=== PATIENT | female | born 1930 | race Caucasian/White ===

== ENCOUNTER 2018-01-08 03:12 | Inpatient (IN) | payer OTHER ==
[~2018-01-08] VITALS: Ht 149.9 cm; Wt 43.5 kg
[2018-01-08 03:35] LABS: BASOPHIL % 0.5 % (0-2); PLATELET COUNT 193 x10^3mcL (130-400)
[2018-01-08 03:39] LABS: RED CELL DISTRIBUTION WIDTH 14.8 % (11.5-14.5)
[2018-01-08 03:46] LABS: CARBON DIOXIDE 28.9 mmol/L (21-32); CHLORIDE SERUM 102 mmol/L (98-107); CREATININE SERUM 1.4 mg/dL (0.6-1.0); GLUCOSE SERUM 126 mg/dL (74-106); SODIUM SERUM 139 mmol/L (136-145)
[2018-01-08 03:51] LABS: ALBUMIN 3.5 g/dL (3.4-5.0); ALKALINE PHOSPHATASE 135 U/L (46-116); ALT/SGPT 25 U/L (14-59); AST/SGOT 19 U/L (15-37); BILIRUBIN TOTAL 0.6 mg/dL (0.20-1.00); MAGNESIUM 2.4 mg/dL (1.8-2.4); TOTAL PROTEIN, SERUM 7.1 g/dL (6.4-8.2)
[2018-01-08] MEDS ORDERED: MEMANTINE HCL10 MG PO (04:43)
[2018-01-08] MEDS ORDERED: APAP500 MG PO (04:43)
[2018-01-08 06:26] LABS: CHOLESTEROL/HDL RATIO 3.8; PHOSPHOROUS 3.8 mg/dL (2.5-4.9)
[2018-01-08 06:36] LABS: FREE T4 1.14 ng/dL (0.76-1.46); FREE THYROXINE INDEX 2.4 ug/dL (1.4-4.5); T4(THYROXINE) 7.1 ug/dL (4.7-13.3)
[2018-01-08 06:44] VITALS: BP 178/65
[2018-01-08 06:51] LABS: microscopic required? YES; urine erythrocyte NEGATIVE (NEGATIVE)
[2018-01-08 07:02] LABS: AMPHETAMINE QUAL UR NONE DETECTED (NEG <=1000)
[2018-01-08 07:05] LABS: T3 TOTAL 0.67 ng/mL
[2018-01-08] MEDS ORDERED: HYDROCHLOROTH12.5 M2 (07:51)
[2018-01-08 09:36] VITALS: BP 158/50
[2018-01-08 11:35] VITALS: BP 178/65
[2018-01-08 12:47] VITALS: BP 146/65
[2018-01-08] MEDS ORDERED: ALENDRONATE SOD70 M2 PO (17:27)
[2018-01-08 20:43] VITALS: BP 155/61
[2018-01-09] VITALS (7 sets, daily range): BP systolic 101–166; BP diastolic 45–70
[2018-01-09 06:25] LABS: BASOPHIL % 0.5 % (0-2); PLATELET COUNT 177 x10^3mcL (130-400)
[2018-01-09 06:27] LABS: RED CELL DISTRIBUTION WIDTH 14.8 % (11.5-14.5)
[2018-01-09 06:49] LABS: CALCIUM 8.9 mg/dL (8.5-10.1); CARBON DIOXIDE 26.5 mmol/L (21-32); CHLORIDE SERUM 106 mmol/L (98-107); GLUCOSE SERUM 94 mg/dL (74-106); MAGNESIUM 1.7 mg/dL (1.8-2.4); PHOSPHOROUS 2.7 mg/dL (2.5-4.9); POTASSIUM SERUM 4.4 mmol/L (3.5-5.1); SODIUM SERUM 140 mmol/L (136-145)
[2018-01-10 06:07] VITALS: BP 115/58
[2018-01-10 06:38] LABS: CALCIUM 8.8 mg/dL (8.5-10.1); CARBON DIOXIDE 25.3 mmol/L (21-32); CHLORIDE SERUM 106 mmol/L (98-107); CREATININE SERUM 0.9 mg/dL (0.6-1.0); GLUCOSE SERUM 91 mg/dL (74-106); MAGNESIUM 2.1 mg/dL (1.8-2.4); PHOSPHOROUS 3.1 mg/dL (2.5-4.9); POTASSIUM SERUM 4.1 mmol/L (3.5-5.1); SODIUM SERUM 137 mmol/L (136-145)
[2018-01-10 06:46] LABS: BASOPHIL % 0.8 % (0-2); PLATELET COUNT 189 x10^3mcL (130-400); RED CELL DISTRIBUTION WIDTH 14.4 % (11.5-14.5)
[2018-01-10 13:16] VITALS: BP 127/62
[2018-01-10 16:25] VITALS: BP 129/58
[2018-01-10 20:08] VITALS: BP 129/53
[2018-01-10 21:19] VITALS: BP 115/57
[2018-01-11 05:56] VITALS: BP 119/49
[2018-01-11 07:42] LABS: BASOPHIL % 0.7 % (0-2); PLATELET COUNT 186 x10^3mcL (130-400)
[2018-01-11 07:49] LABS: RED CELL DISTRIBUTION WIDTH 14.6 % (11.5-14.5)
[2018-01-11 08:25] LABS: CALCIUM 8.9 mg/dL (8.5-10.1); CARBON DIOXIDE 25.5 mmol/L (21-32); CHLORIDE SERUM 106 mmol/L (98-107); CREATININE SERUM 0.8 mg/dL (0.6-1.0); GLUCOSE SERUM 90 mg/dL (74-106); MAGNESIUM 1.9 mg/dL (1.8-2.4); PHOSPHOROUS 4.3 mg/dL (2.5-4.9); SODIUM SERUM 139 mmol/L (136-145)
[2018-01-11 08:40] VITALS: BP 124/58
[2018-01-11 12:08] VITALS: BP 111/56
[2018-01-11 17:14] VITALS: BP 122/53
[2018-01-11 20:17] VITALS: BP 145/58
[2018-01-12] VITALS (13 sets, daily range): BP systolic 116–174; BP diastolic 50–83; Ht 149.9 cm; Wt 43.5 kg
[2018-01-12 07:33] LABS: BASOPHIL % 0.6 % (0-2); PLATELET COUNT 195 x10^3mcL (130-400)
[2018-01-12 07:42] LABS: RED CELL DISTRIBUTION WIDTH 15.2 % (11.5-14.5)
[2018-01-12 08:53] LABS: CALCIUM 8.8 mg/dL (8.5-10.1); CARBON DIOXIDE 26.7 mmol/L (21-32); CHLORIDE SERUM 106 mmol/L (98-107); CREATININE SERUM 0.9 mg/dL (0.6-1.0); GLUCOSE SERUM 87 mg/dL (74-106); PHOSPHOROUS 3.7 mg/dL (2.5-4.9); POTASSIUM SERUM 4.1 mmol/L (3.5-5.1); SODIUM SERUM 139 mmol/L (136-145)
[2018-01-13 05:08] VITALS: BP 129/88
[2018-01-13 06:22] LABS: BASOPHIL % 0.5 % (0-2); PLATELET COUNT 201 x10^3mcL (130-400)
[2018-01-13 06:31] LABS: CALCIUM 8.4 mg/dL (8.5-10.1); CARBON DIOXIDE 28.2 mmol/L (21-32); CHLORIDE SERUM 106 mmol/L (98-107); CREATININE SERUM 0.8 mg/dL (0.6-1.0); GLUCOSE SERUM 93 mg/dL (74-106); MAGNESIUM 1.9 mg/dL (1.8-2.4); POTASSIUM SERUM 4.1 mmol/L (3.5-5.1); SODIUM SERUM 140 mmol/L (136-145)
[2018-01-13 07:11] LABS: RED CELL DISTRIBUTION WIDTH 14.9 % (11.5-14.5)
[2018-01-13 10:34] VITALS: BP 130/55
[2018-01-13 17:10] VITALS: BP 151/67
[2018-01-13 21:23] VITALS: BP 131/67
[2018-01-14 05:27] VITALS: BP 102/55
[2018-01-14 06:23] LABS: BASOPHIL % 0.6 % (0-2); PLATELET COUNT 177 x10^3mcL (130-400)
[2018-01-14 06:58] LABS: CALCIUM 8.2 mg/dL (8.5-10.1); CARBON DIOXIDE 25.8 mmol/L (21-32); CHLORIDE SERUM 105 mmol/L (98-107); CREATININE SERUM 0.9 mg/dL (0.6-1.0); GLUCOSE SERUM 108 mg/dL (74-106); MAGNESIUM 1.8 mg/dL (1.8-2.4); PHOSPHOROUS 2.9 mg/dL (2.5-4.9); POTASSIUM SERUM 3.7 mmol/L (3.5-5.1); SODIUM SERUM 138 mmol/L (136-145)
[2018-01-14 07:06] LABS: RED CELL DISTRIBUTION WIDTH 14.9 % (11.5-14.5)
[2018-01-14 09:09] VITALS: BP 125/61
[2018-01-14 11:56] VITALS: BP 125/61
[2018-01-14] MEDS ORDERED: LIPI10 PO (12:12)
[2018-01-14] MEDS ORDERED: ECO81 PO (12:12)
[2018-01-14] MEDS ORDERED: LAC PO (12:13)
== END 2018-01-14 15:40 | disposition home health service (06) | DRG 242 ==
LOC: ED 03:12 → DU 05:36 → MU 01-14 10:52
PROVIDERS: Emergency Medicine; Family Medicine; Internal Medicine Cardiovascular Disease
PROC: 02H63JZ Insertion of Pacemaker Lead into Right Atrium, Percutaneous Approach (ICD-10-PCS; 2018-01-12)
PROC: 02HK3JZ Insertion of Pacemaker Lead into Right Ventricle, Percutaneous Approach (ICD-10-PCS; 2018-01-12)
PROC: 0JH606Z Insertion of Pacemaker, Dual Chamber into Chest Subcutaneous Tissue and Fascia, Open Approach (ICD-10-PCS; principal; 2018-01-12 09:30)
PROC: 02WA3MZ Revision of Cardiac Lead in Heart, Percutaneous Approach (ICD-10-PCS; 2018-01-13)
DX: I49.5 Sick sinus syndrome (principal); N17.0 Acute kidney failure with tubular necrosis; N39.0 Urinary tract infection, site not specified; Z68.1 Body mass index [BMI] 19.9 or less, adult; G90.8 Other disorders of autonomic nervous system; W01.0XXA Fall on same level from slipping, tripping and stumbling without subsequent striking against object, initial encounter; I10 Essential (primary) hypertension; E86.0 Dehydration; H40.9 Unspecified glaucoma; M81.0 Age-related osteoporosis without current pathological fracture; E87.6 Hypokalemia; E83.42 Hypomagnesemia; F03.90 Unspecified dementia, unspecified severity, without behavioral disturbance, psychotic disturbance, mood disturbance, and anxiety; D64.9 Anemia, unspecified; Y93.89 Activity, other specified; Y92.89 Other specified places as the place of occurrence of the external cause; Y99.8 Other external cause status; Z79.899 Other long term (current) drug therapy
CPT/HCPCS: 33208; 83880; 84439; 97110-GP; C1785; J0690; J0696; J2001; J2250; J3010; J3370; J3490; J7030; J7040; Q0092; Q0163; Q9967

== ENCOUNTER 2018-12-26 20:58 | Inpatient (IN) | payer OTHER ==
[~2018-12-26] VITALS: Ht 149.9 cm; Wt 47.4 kg
[~2018-12-26 20:58] MED LIST: ALENDRONATE SOD70 M2 PO; APAP500 MG PO; ECO81 PO; HYDROCHLOROTH12.5 M2; LAC PO; LIPI10 PO; MEMANTINE HCL10 MG PO
[2018-12-26 21:40] LABS: BASOPHIL % 0.3 % (0-2); PLATELET COUNT 166 x10^3mcL (130-400); RED CELL DISTRIBUTION WIDTH 13.3 % (11.5-14.5)
[2018-12-26 21:58] LABS: CALCIUM 8.6 mg/dL (8.5-10.1); CHLORIDE SERUM 106 mmol/L (98-107); GLUCOSE SERUM 153 mg/dL (74-106); POTASSIUM SERUM 4.3 mmol/L (3.5-5.1); SODIUM SERUM 139 mmol/L (136-145)
[2018-12-26 22:03] LABS: ALBUMIN 3.3 g/dL (3.4-5.0); ALKALINE PHOSPHATASE 72 U/L (46-116); ALT/SGPT 30 U/L (14-59); AST/SGOT 25 U/L (15-37); BILIRUBIN TOTAL 0.3 mg/dL (0.20-1.00); TOTAL PROTEIN, SERUM 6.8 g/dL (6.4-8.2)
[2018-12-26] MEDS ORDERED: FERROUS GLUCON324 M2 PO (23:26)
[2018-12-26] MEDS ORDERED: HYDROCHLOROTH12.5 M2 PO (23:29)
[2018-12-27 00:42] VITALS: BP 109/46
[2018-12-27 01:28] LABS: MAGNESIUM 2.3 mg/dL (1.8-2.4); PHOSPHOROUS 3.4 mg/dL (2.5-4.9)
[2018-12-27 01:29] LABS: CHOLESTEROL/HDL RATIO 2.2
[2018-12-27 05:32] VITALS: BP 141/65
[2018-12-27 05:49] LABS: UA SPECIFIC GRAVITY >=1.030 (1.005-1.035); microscopic required? YES; urine erythrocyte 2+ (NEGATIVE)
[2018-12-27 06:04] LABS: BASOPHIL % 1.4 % (0-2); PLATELET COUNT 141 x10^3mcL (130-400); RED CELL DISTRIBUTION WIDTH 13.6 % (11.5-14.5)
[2018-12-27 06:28] LABS: CALCIUM 8.7 mg/dL (8.5-10.1); CARBON DIOXIDE 25.6 mmol/L (21-32); CHLORIDE SERUM 109 mmol/L (98-107); GLUCOSE SERUM 98 mg/dL (74-106); MAGNESIUM 2.4 mg/dL (1.8-2.4); PHOSPHOROUS 3.7 mg/dL (2.5-4.9); POTASSIUM SERUM 4.9 mmol/L (3.5-5.1); SODIUM SERUM 142 mmol/L (136-145)
[2018-12-27 07:06] VITALS: BP 117/54
[2018-12-27 12:20] VITALS: BP 104/48
[2018-12-27 16:08] VITALS: BP 109/52
[2018-12-28 05:28] VITALS: BP 123/60
[2018-12-28 06:21] LABS: BASOPHIL % 0.9 % (0-2); PLATELET COUNT 148 x10^3mcL (130-400); RED CELL DISTRIBUTION WIDTH 13.5 % (11.5-14.5)
[2018-12-28 07:07] LABS: CALCIUM 8.3 mg/dL (8.5-10.1); CARBON DIOXIDE 29.3 mmol/L (21-32); CHLORIDE SERUM 104 mmol/L (98-107); GLUCOSE SERUM 87 mg/dL (74-106); MAGNESIUM 2.3 mg/dL (1.8-2.4); PHOSPHOROUS 3.3 mg/dL (2.5-4.9); POTASSIUM SERUM 4.5 mmol/L (3.5-5.1); SODIUM SERUM 141 mmol/L (136-145)
[2018-12-28 09:46] VITALS: BP 127/47
[2018-12-28] MEDS ORDERED: METOPROLOL TART25 M1 PO (10:00)
[2018-12-28] MEDS ORDERED: IMD60 PO (10:00)
[2018-12-28] MEDS ORDERED: ASPIR 8181 MG PO (10:02)
[2018-12-28 13:10] VITALS: BP 143/47
[2018-12-28 17:41] VITALS: BP 127/60
[2018-12-28 22:14] VITALS: BP 136/59
[2018-12-29 05:41] VITALS: BP 125/53
[2018-12-29 06:14] LABS: BASOPHIL % 0.6 % (0-2); PLATELET COUNT 177 x10^3mcL (130-400); RED CELL DISTRIBUTION WIDTH 12.8 % (11.5-14.5)
[2018-12-29 06:22] LABS: CALCIUM 8.5 mg/dL (8.5-10.1); CARBON DIOXIDE 28.4 mmol/L (21-32); CHLORIDE SERUM 105 mmol/L (98-107); GLUCOSE SERUM 92 mg/dL (74-106); POTASSIUM SERUM 4.2 mmol/L (3.5-5.1); SODIUM SERUM 140 mmol/L (136-145)
[2018-12-29 08:25] VITALS: BP 143/72
[2018-12-29 12:21] VITALS: BP 146/77
[2018-12-29 17:34] VITALS: BP 93/57
[2018-12-30 05:01] LABS: BASOPHIL % 0.4 % (0-2); PLATELET COUNT 191 x10^3mcL (130-400); RED CELL DISTRIBUTION WIDTH 13.2 % (11.5-14.5)
[2018-12-30 05:11] LABS: CALCIUM 8.6 mg/dL (8.5-10.1); CARBON DIOXIDE 28.8 mmol/L (21-32); CHLORIDE SERUM 102 mmol/L (98-107); CREATININE SERUM 1.2 mg/dL (0.6-1.0); GLUCOSE SERUM 113 mg/dL (74-106); POTASSIUM SERUM 4.6 mmol/L (3.5-5.1); SODIUM SERUM 139 mmol/L (136-145)
[2018-12-30 05:27] LABS: MAGNESIUM 2.2 mg/dL (1.8-2.4); PHOSPHOROUS 4.7 mg/dL (2.5-4.9)
[2018-12-30 07:40] VITALS: BP 174/81
[2018-12-30 08:26] VITALS: Ht 149.9 cm; Wt 47.4 kg
[2018-12-30 11:01] VITALS: BP 121/68
[2018-12-30] MEDS ORDERED: COR200 PO ×2 (11:03→11:37)
[2018-12-30] MEDS ORDERED: ZES5 PO (11:03)
[2018-12-30] MEDS ORDERED: LIPI10 PO (11:03)
[2018-12-30] MEDS ORDERED: AMIODARONE HCL200 MG PO (11:04)
[2018-12-30] MEDS ORDERED: HYDROCHLOROTH12.5 M2 PO (11:07)
[2018-12-30 11:50] VITALS: BP 121/68
== END 2018-12-30 15:20 | disposition home or self-care (01) | DRG 205 ==
LOC: ED 20:58 → IC 23:42 → DU 23:42 → IC 12-29 08:27
PROVIDERS: Emergency Medicine; General Practice; ADMIT Internal Medicine
DX: M94.0 Chondrocostal junction syndrome [Tietze] (principal); N17.0 Acute kidney failure with tubular necrosis; K21.9 Gastro-esophageal reflux disease without esophagitis; D50.9 Iron deficiency anemia, unspecified; I25.10 Atherosclerotic heart disease of native coronary artery without angina pectoris; I48.91 Unspecified atrial fibrillation; I10 Essential (primary) hypertension; F03.90 Unspecified dementia, unspecified severity, without behavioral disturbance, psychotic disturbance, mood disturbance, and anxiety; M81.0 Age-related osteoporosis without current pathological fracture; Z95.0 Presence of cardiac pacemaker; Z68.24 Body mass index [BMI] 24.0-24.9, adult
CPT/HCPCS: 83880; C9113; J0282; J1650; J7040; Q0092

== ENCOUNTER 2018-12-31 15:29 | Emergency (ER) | payer OTHER ==
[~2018-12-31] VITALS: Ht 154.9 cm; Wt 45.4 kg
[~2018-12-31 15:29] MED LIST changes: +AMIODARONE HCL200 MG PO; +ASPIR 8181 MG PO; +COR200 PO; +FERROUS GLUCON324 M2 PO; +HYDROCHLOROTH12.5 M2 PO; +IMD60 PO; +METOPROLOL TART25 M1 PO; +ZES5 PO
[2018-12-31 15:59] VITALS: Ht 154.9 cm; Wt 45.4 kg
[2018-12-31 16:57] LABS: BASOPHIL % 0.7 % (0-2); PLATELET COUNT 202 x10^3mcL (130-400); RED CELL DISTRIBUTION WIDTH 13.4 % (11.5-14.5)
[2018-12-31 17:09] LABS: CALCIUM 8.6 mg/dL (8.5-10.1); CARBON DIOXIDE 27.7 mmol/L (21-32); CHLORIDE SERUM 102 mmol/L (98-107); CREATININE SERUM 1.2 mg/dL (0.6-1.0); GLUCOSE SERUM 130 mg/dL (74-106); POTASSIUM SERUM 4.3 mmol/L (3.5-5.1); SODIUM SERUM 138 mmol/L (136-145)
[2018-12-31 17:14] LABS: ALKALINE PHOSPHATASE 160 U/L (46-116); ALT/SGPT 42 U/L (14-59); AST/SGOT 29 U/L (15-37); BILIRUBIN TOTAL 1.12 mg/dL (0.20-1.00); TOTAL PROTEIN, SERUM 7.5 g/dL (6.4-8.2)
[2018-12-31 17:22] LABS: ALBUMIN 3.2 g/dL (3.4-5.0)
[2018-12-31 19:00] VITALS: BP 135/60
== END 2018-12-31 19:00 | disposition home or self-care (01) ==
LOC: ED 15:29
PROVIDERS: Emergency Medicine
DX: L03.114 Cellulitis of left upper limb (principal); I48.0 Paroxysmal atrial fibrillation; R55 Syncope and collapse; I10 Essential (primary) hypertension; Z95.0 Presence of cardiac pacemaker
CPT/HCPCS: 36415; Q0092

== ENCOUNTER 2019-01-29 07:44 | Observation (INO) | payer OTHER | END 2019-01-30 16:51 | LOC: ED 07:44 → DU 15:52 → ED 07:44 → DU 01-30 16:51 → ED 07:44 → DU 10:34 ==

== ENCOUNTER 2019-03-11 12:13 | Emergency (ER) | payer OTHER ==
[~2019-03-11] VITALS: Ht 152.4 cm; Wt 47.6 kg
[~2019-03-11 12:13] MED LIST changes: +ASPIRIN CHILDRE81 MG PO; +CEPHALEXIN500 M1 PO; +COL250 PO; +DILTIAZEM HCL30 MG PO; +FERROUS GLUCON324 MG PO; +NAMENDA10 M2 PO; +POLYETHYLENE GL1 PO1 PO; +PROBIOTIC GOLD1 EACH PO; +SEN PO; +TRAMADOL HCL50 MG PO
[2019-03-11 12:20] VITALS: Ht 152.4 cm; Wt 47.6 kg
[2019-03-11 13:55] LABS: BASOPHIL % 1.3 % (0-2); PLATELET COUNT 198 x10^3mcL (130-400)
[2019-03-11 14:09] LABS: CALCIUM 8.4 mg/dL (8.5-10.1); CARBON DIOXIDE 24.7 mmol/L (21-32); CHLORIDE SERUM 101 mmol/L (98-107); CREATININE SERUM 1.3 mg/dL (0.6-1.0); GLUCOSE SERUM 118 mg/dL (74-106); SODIUM SERUM 135 mmol/L (136-145)
[2019-03-11 14:14] LABS: ALKALINE PHOSPHATASE 80 U/L (46-116); ALT/SGPT 14 U/L (14-59); AST/SGOT 16 U/L (15-37); BILIRUBIN TOTAL 0.6 mg/dL (0.20-1.00); TOTAL PROTEIN, SERUM 7.3 g/dL (6.4-8.2)
[2019-03-11 14:18] LABS: ALBUMIN 3.2 g/dL (3.4-5.0)
[2019-03-11 17:19] VITALS: BP 161/58
== END 2019-03-11 17:00 | disposition home or self-care (01) ==
LOC: ED 12:13
PROVIDERS: Emergency Medicine
DX: S82.831A Other fracture of upper and lower end of right fibula, initial encounter for closed fracture (principal); I11.0 Hypertensive heart disease with heart failure; I50.9 Heart failure, unspecified; I48.91 Unspecified atrial fibrillation; Z86.2 Personal history of diseases of the blood and blood-forming organs and certain disorders involving the immune mechanism; Z98.890 Other specified postprocedural states; X58.XXXA Exposure to other specified factors, initial encounter; Y93.89 Activity, other specified; Y92.89 Other specified places as the place of occurrence of the external cause; Y99.8 Other external cause status
CPT/HCPCS: 36415; Q0092

== ENCOUNTER 2019-03-30 18:30 | Emergency (ER) | payer OTHER ==
[~2019-03-30] VITALS: Ht 149.9 cm; Wt 45.4 kg
[2019-03-30 18:45] VITALS: Ht 149.9 cm; Wt 45.4 kg
[2019-03-30 19:33] LABS: BASOPHIL % 1.7 % (0-2); PLATELET COUNT 191 x10^3mcL (130-400)
[2019-03-30 19:34] LABS: RED CELL DISTRIBUTION WIDTH 18.1 % (11.5-14.5)
[2019-03-30 19:46] LABS: CALCIUM 9.3 mg/dL (8.5-10.1); CARBON DIOXIDE 25.8 mmol/L (21-32); CHLORIDE SERUM 105 mmol/L (98-107); GLUCOSE SERUM 110 mg/dL (74-106); POTASSIUM SERUM 3.8 mmol/L (3.5-5.1); SODIUM SERUM 142 mmol/L (136-145)
[2019-03-30 19:51] LABS: ALBUMIN 3.6 g/dL (3.4-5.0); ALKALINE PHOSPHATASE 73 U/L (46-116); ALT/SGPT 20 U/L (14-59); AST/SGOT 14 U/L (15-37); BILIRUBIN TOTAL 0.3 mg/dL (0.20-1.00); TOTAL PROTEIN, SERUM 7.8 g/dL (6.4-8.2)
[2019-03-30 21:18] VITALS: BP 159/76
== END 2019-03-30 21:57 | disposition home or self-care (01) ==
LOC: ED 18:30
PROVIDERS: Emergency Medicine
DX: S09.90XA Unspecified injury of head, initial encounter (principal); N39.0 Urinary tract infection, site not specified; R60.9 Edema, unspecified; I11.0 Hypertensive heart disease with heart failure; I50.9 Heart failure, unspecified; Z95.0 Presence of cardiac pacemaker; W19.XXXA Unspecified fall, initial encounter; Y93.89 Activity, other specified; Y92.89 Other specified places as the place of occurrence of the external cause; Y99.8 Other external cause status
CPT/HCPCS: 36415; 83880